=== PATIENT | male | born 1950 | race Caucasian/White ===

== ENCOUNTER 2024-01-09 17:56 | Emergency (ER) | payer MEDICARE, OTHER, SELFPAY ==
[2024-01-09 17:59] VITALS: BP 207/103
--- NOTE | 2024-01-09 18:09 | ED.PDOC.TRB ---
ED Provider Triage
-
A medical screening examination has been initiated by a qualified medical provider. Based on the assessment performed at this time, it has been determined that an emergent medical condition may exist and the patient has been informed that further
medical evaluation and possible additional diagnostic testing may be needed.
HPI: This is a medical evaluation conducted in person to initiate diagnostic evaluation and provide initial therapeutics. Please see further documentation by the treating clinician.
GENERAL: Alert , in no apparent distress
resp: no resp distress
NEUROLOGICAL: Alert and oriented
PSYCH: Normal and appropriate interaction, anxious
73 y/o M with h/o HTN
hypertensive urgency in october and was hospitalized, put on 3 new meds
has been having elevated bps sometimes and thought related to anxiety becuase he rechecks it later and it is usually better
last week he was having some lower readings so he was taken off the nifedipine for 3 days but the he restarted it when his numbers went back up 3 days ago
he is here on vacation staying at a hotel and thought his numbers were too high so he came in
just started lexapro but is tapering up for his anxiety
he denies cp, sob, headache, vision changes
bp hre 200/90
screening labs, ekg
[2024-01-09 18:37] LABS: % Basophils 0.5 % (0-2); % Eosinophils 2.6 % (0-6); % Immature Granulocytes 0.5 % (0-0.5); % Lymphocytes 26.2 % (20.5-51.1); % Monocytes 11.5 % (1.7-9.3); % Neutrophils 58.7 % (42.2-75.2); Absolute Eosinophils 0.2 10^3/uL (0-0.7); Absolute Lymphocytes 1.9 10^3/uL (1.2-3.4); Absolute Monocytes 0.9 10^3/uL (0.1-0.6); Absolute Neutrophils 4.3 10^3/uL (1.4-6.5); Hematocrit 39.1 % (39.0-52.0); Hemoglobin 13.9 g/dL (13.0-18.0); Mean Corp Hgb Conc. 35.5 g/dL (33.0-37.0); Mean Corpuscular Volume 87.3 fL (80.0-94.0); Mean Platelet Volume 9.8 fL (7.4-10.4); Nucleated Red Blood Cells % 0 % (-); Platelet Count 230 10^3/uL (130-400); Red Blood Cell Count 4.48 10^6/uL (4.70-6.10); Red Cell Dist. Width 12.6 % (11.5-14.5); White Blood Cell Count 7.4 10^3/uL (4.8-10.8)
[2024-01-09 18:49] LABS: ALT (SGPT) 18 U/L (0-50); AST (SGOT) 31 U/L (17-59); Albumin 4.6 g/dl (3.5-5.0); Alkaline Phosphatase 58 U/L (38-126); Blood Urea Nitrogen 21 mg/dl (9-20); Calcium 9.2 mg/dl (8.4-10.2); Carbon Dioxide 26 mmol/L (22-30); Chloride 105 mmol/L (98-107); Glucose 100 mg/dl (70-99); Potassium 4.6 mmol/L (3.5-5.1); Sodium 142 mmol/L (135-145); Total Bilirubin 0.6 mg/dl (0.2-1.3); Total Protein 7.2 g/dl (6.3-8.2); eGFR 58.37
[2024-01-09 20:13] VITALS: BP 199/97
--- NOTE | 2024-01-09 20:32 | ED.GENMED ---
History of Present Illness
General
Chief Complaint: Blood Pressure Problem
Time Seen by Provider: 01/09/24 19:50
History of Present Illness
History of Present Illness:
73-year-old male presents to the emergency department for evaluation of elevated blood pressure readings. He is visiting the area from [place], also admits to frequent increased anxiety. States he was admitted to [facility]
earlier this summer due to diplopia with concern for CVA, doing at hospital stay was noted that he was profoundly hypertensive. He was discharged on carvedilol 25 mg, lisinopril 40 mg, and nifedipine 30 mg extended release. He notes since that
time he has had frequent dizzy spells and his primary care physician was concern for overmedication and discontinue nifedipine however blood pressures have continually risen over the past several weeks. He reinitiated his nifedipine 3 days ago. He
is concerned for lightheadedness and a general feeling of anxiety that began this evening. Has been compliant with his meds otherwise
Review of Systems
Review of Systems
Allergies reviewed?: Yes
All Other Systems: ROS reviewed and negative except as documented in HPI and ROS
Phy Exam
Physical Exam
Physical Exam:
GEN: Well appearing, NAD, WDWN
HEENT: Oral mucosa moist, no scleral icterus
Cardiac: Regular rate
Lung: No respiratory distress, no tachypnea
MSK: No gross deformity or injuries
Skin: Good color, no pallor or jaundice, no rashes
Neuro: AO x3, moves all extremities freely
Psych: Calm, cooperative
Course
Orders/Labs/Results
Orders:
Orders
01/09/24 18:07
Electrocardiogram (*1) Urgent
Reason for Study: Hypertension, Benign
EKG- Treatment ONCE
01/09/24 18:19
Complete Blood Count/With Diff Urgent
Comprehensive Metabolic Panel Urgent
Abnormal Lab Results
01/09/24
18:19
RBC 4.48 L 10^6/uL
(4.70-6.10)
Absolute Monos (auto) 0.9 H 10^3/uL
(0.1-0.6)
Monocytes % 11.5 H %
(1.7-9.3)
BUN 21 H mg/dl
(9-20)
Glucose 100 H mg/dl
(70-99)
01/09/24 18:19
01/09/24 18:19
Vital Signs
Initial and Last Documented VS:
Initial Vital Signs
Temp Pulse Resp BP Pulse Ox
98.7 F 73 16 207/103 98
01/09/24 17:59 01/09/24 17:59 01/09/24 17:59 01/09/24 17:59 01/09/24 17:59
Last Documented Vital Signs
Temp Pulse Resp BP Pulse Ox
98.7 F 66 17 199/97 97
01/09/24 17:59 01/09/24 20:15 01/09/24 20:15 01/09/24 20:13 01/09/24 20:15
MDM/Problems Addressed
MDM/Problems Addressed:
Labs and EKG are reassuring. The patient has no clinical symptoms consistent with hypertensive crisis/endorgan damage. I discussed the options with the patient to include increasing blood pressure medication regimen however he is apprehensive
about this. He would prefer to follow-up with his primary care physician which is certainly reasonable. I also educated him that as he is attempting to wean up on his antianxiety medications it is likely that he will experience a prolonged period
of poor anxiety control until he reaches a good therapeutic level. Patient plans to return to [place] within the next 2 days to follow-up with his primary care physician, no indication for IV antihypertensive use
Comment
Comment:
EKG independently interpreted by me shows a normal sinus rhythm at a rate of [address] changes concerning for ischemia
*Critical Care Note
Total Time (30-74mins, 75-104mins- exclusive of procedures): Not Applicable
ED Attending Note
-
Portions of this chart may have been created with voice recognition software.� Occasional wrong word or��sound alike� substitutions may have occurred due to the inherent limitations of voice recognition software.
Discharge Plan
Departure
Patient Disposition: Home (Routine Discharge)
Date of Disposition: 01/09/24
Time of Disposition: 20:33
Patient with high blood pressure during this ER visit?: No
Discharge Problem:
Hypertension
Instructions: High Blood Pressure (DC)
Activity Restrictions/Additional Instructions:
I recommend taking your nifedipine at nighttime along with carvedilol, while continuing lisinopril in the morning with the other dose of carvedilol
We discussed that in all likelihood, you may need additional blood pressure medications. This can include addition of hydrochlorothiazide (HCTZ) to your lisinopril, OR addition of separate medication such as hydralazine or clonidine twice daily.
Please discuss these options with your primary doctor
Your anxiety also likely plays a role in your elevated blood pressure. It may take several weeks from the initiation of your anti-anxiety medication to reach a therapeutic effect
Please follow up with your primary doctor by phone within 48 hours of your visit
Return to the ER if you develop chest pain, shortness of breath, vision changes or severe headache
Interventions
Interventions:
*Risk Screen - Suicide Last Done: 01/09/24 20:49
*General Assessment Last Done: 01/09/24 20:49
*Neglect/Abuse Screening Last Done: 01/09/24 20:49
ED- Fall Risk Assessment Last Done: 01/09/24 20:49
*ED COVID-19 Vaccine History Last Done: 01/09/24 20:53
*Nursing Disposition Last Done: 01/09/24 20:49
ED- Cardiac Assessment Last Done: 01/09/24 20:39
ED- Neurological Assessment Last Done: 01/09/24 20:39
ED- Pulmonary Assessment Last Done: 01/09/24 20:39
Discharge Date and Time
Discharge Date/Time: 01/09/24 20:53
Print Language: SLOVAK
== END 2024-01-09 20:53 | disposition home or self-care (01) ==
LOC: EMR 17:56
PROVIDERS: Physician Assistant; EMERGENCY PHYSICIAN Emergency Medicine
DX: I10 Essential (primary) hypertension (principal); F41.9 Anxiety disorder, unspecified; R42 Dizziness and giddiness
CPT/HCPCS: 99283; 80053; 85025; 93005